=== PATIENT | male | born 1960 | race Caucasian/White ===

== ENCOUNTER 2021-03-23 17:21 | Emergency (ER) | payer BC, OTHER ==
[2021-03-23] MEDS ORDERED: Fluorescein 1 MG Ophth Strip EYERT ONE ×2 (18:16→18:46)
[2021-03-23] MEDS ORDERED: Proparacaine 0.5% Ophth Soln 15 ML Bottle EYERT PRN ×2 (18:16→18:26)
--- NOTE | 2021-03-23 18:20 | EDM.PDOC ---
ED HPI GENERAL MEDICAL PROBLEM - General Stated Complaint: SOMETHING IN EYE Time Seen by Provider: 03/23/21 18:12 Source of Information: Reports: Patient - History of Present Illness INITIAL COMMENTS - FREE TEXT/NARRATIVE: Den is a 60 y/o male who presents to the ER with complaints of something in his right eye. He was grinding metal yesterday and may have gotten metal in his eye. It bothered him all night, worse when his eyelids are closed. It is red and watery. No vision changes. - Related Data Allergies Allergy/AdvReac Type Severity Reaction Status Date / Time diclofenac sodium Allergy Hives Verified 04/18/16 19:50 [From Voltaren] hydrochlorothiazide Allergy Bradycardia Verified 04/18/16 19:50 lisinopril Allergy Bradycardia Verified 04/18/16 19:50 misoprostol [From Arthrotec] Allergy Hives Verified 04/18/16 19:50 Home Meds: Home Meds Aspirin 81 mg PO DAILY 06/02/14 [History] allopurinoL [Zyloprim] 300 mg PO DAILY 06/02/14 [History] atorvaSTATin [Lipitor] 10 mg PO BEDTIME 06/02/14 [History] Magnesium Oxide 400 mg PO BID #30 tablet 06/04/14 [Rx] amLODIPine [Norvasc] 5 mg PO Q12HR #60 tablet 06/04/14 [Rx] Losartan [Cozaar] 50 mg PO DAILY 09/14/15 [History] Hydrocodone/Acetaminophen [Hydrocodon-Acetaminophn 10-325] 1 tab PO BID 04/18/16 [History] Past Medical History - Past Health History Medical/Surgical History: Denies Medical/Surgical History HEENT History: Reports: Sinusitis Cardiovascular History: Reports: Hypertension, [place], Other (See Below) Other Cardiovascular History: Hx. of dyslipidemia Respiratory History: Reports: Asthma Gastrointestinal History: Reports: GERD Genitourinary History: Reports: Other (See Below) Other Genitourinary History: Chronic Kidney Disease, Hx. of testicular mass (Being follwed by Urology) Musculoskeletal History: Reports: Arthritis, Back Pain, Chronic, Neck Pain, Chronic, Other (See Below) Other Musculoskeletal History: Cervical Spine Degenerative Disc Disease with radiculopathy, C5-C6 anterolisthesis, neuroforaminal narrowing of cervical spine, degenerative spondylosis of multiple levels of the spine Neurological History: Reports: Headaches, Chronic Psychiatric History: Reports: Anxiety, Other (See Below) Other Psychiatric History: Hx. of THC use Endocrine/Metabolic History: Reports: Vitamin D Deficiency Other Hematologic History: Hypercalcemia Other Oncologic History: Hx. of testicular mass Review of Systems - Review of Systems Review Of Systems: See Below Constitutional: Reports: No Symptoms Eyes: Reports: Drainage, Foreign Body Sensation, Pain Ears: Reports: No Symptoms Nose: Reports: No Symptoms Mouth/Throat: Reports: No Symptoms Respiratory: Reports: No Symptoms Cardiovascular: Reports: No Symptoms GI/Abdominal: Reports: No Symptoms Genitourinary: Reports: No Symptoms Musculoskeletal: Reports: No Symptoms Skin: Reports: No Symptoms Neurological: Reports: No Symptoms Psychiatric: Reports: No Symptoms ED EXAM, GENERAL - Physical Exam Exam: See Below General Appearance: Alert, WD/WN, No Apparent Distress Eye Exam: Right Eye: Foreign Body (7 o'clock position note metal piece), Bilateral Eye: EOMI, PERRL, Other (Wood's lamp exan done and only dye uptake noted around foreign body) Ears: Hearing Grossly Normal Nose: Normal Inspection Throat/Mouth: Normal Voice Head: Atraumatic, Normocephalic Respiratory/Chest: No Respiratory Distress Cardiovascular: Regular Rate, Rhythm GI/Abdominal: Soft (Male) Exam: Deferred Rectal (Males) Exam: Deferred Neurological: Alert, Oriented, CN II-XII Intact, Normal Cognition Skin Exam: Warm, Dry, Intact, Normal Color ED TRAUMA PROCEDURES - Foreign Body Removal Indication:: Foreign Body Right Eye Consent Obtained: Patient Performing Doctor:: Kenisha Dyer Anesthesia Type: Local Findings:: Note metal shard in 7 o'clock position on the right cornea, removed with Algerbrush tip and Q Tip. Patient reported feeling better following removal. Complications:: No Comments:: Eye patched after instilling Neosporin eye oint to right lower eyelid. Course - Vital Signs Text/Narrative:: 1811 The patient was seen by the [facility]. Proparaine and Fluorescein placed in right eye. Right examined with Wood's lamp. See Procedure Note. The patient was given discharge instructions and left the ER in stable condition. - Orders/Labs/Meds Orders: Active Orders 24 hr Category Date Time Status Proparacaine [Proparacaine 0.5% Ophth Soln] Med 03/23/21 18:26 Ordered 1 ml EYERT ASDIRECTED PRN Medication Orders Proparacaine HCl (Proparacaine 0.5% Ophth Soln 15 Ml Bottle) 1 ml EYERT ASDIRECTED PRN PRN Reason: Other Meds: Medications Generic Name Dose Route Start Last Admin Trade Name Frecurt PRN Reason Stop Dose Admin Proparacaine HCl 1 ml 03/23/21 18:26 Proparacaine 0.5% Ophth Soln 15 Ml Bottle EYERT ASDIRECTED PRN Other Discontinued Medications Generic Name Dose Route Start Last Admin Trade Name Freq PRN Reason Stop Dose Admin Bacitracin/Polymyxin B Sulfate 1 pkt 03/23/21 18:50 Bacitracin/Polymyxin B Oint 0.9 Gm U/D Pkt TOP 03/23/21 18:51 ONETIME ONE Fluorescein Sodium 1 mg 03/23/21 18:16 03/23/21 18:28 Fluorescein 1 Mg Ophth Strip EYERT 03/23/21 18:17 1 mg ONETIME ONE Administration Fluorescein Sodium 1 mg 03/23/21 18:46 03/23/21 18:49 Fluorescein 1 Mg Ophth Strip EYERT 03/23/21 18:47 1 mg ONETIME ONE Administration Neomycin/Polymyxin/Bacitracin Confirm 03/23/21 19:10 Bacitracin/Neomycin/Polymyxin B Ophth Oint 3.5 Gm Tube Administered 03/23/21 19:11 Dose 3.5 gm .ROUTE .STK-MED ONE Proparacaine HCl 1 ml 03/23/21 18:16 03/23/21 18:29 Proparacaine 0.5% Ophth Soln 15 Ml Bottle EYERT 5 drop ASDIRECTED PRN Administration Other Departure - Departure Time of Disposition: 19:05 Disposition: Home, Self-Care 01 Condition: Good Clinical Impression: Foreign body in cornea, right eye, initial encounter - Discharge Information Instructions: Eye Foreign Body Referrals: Hannah De Guzman PA-C [Primary Care Provider] - Additional Instructions: -Neosporin ophthalmic ointment Apply 3x daily to your right lower eyelid and pat ch eye for 48 hours #3.5gm (ER) USe the medication that was given to you in the ER. -Keep your eye patched while it heals. -Monitor for fever or other signs of infection -Make an appt to see your [facility] on Friday for a recheck - My Orders Last 24 Hours: My Active Orders 03/23/21 18:26 Proparacaine [Proparacaine 0.5% Ophth Soln] 1 ml EYERT ASDIRECTED PRN - Assessment/Plan Last 24 Hours: My Active Orders 03/23/21 18:26 Proparacaine [Proparacaine 0.5% Ophth Soln] 1 ml EYERT ASDIRECTED PRN Assessment:: 1)Foreign Body Right Eye with Removal Plan: As above
[2021-03-23] MEDS ORDERED: Bacitracin/Polymyxin B Oint 0.9 GM U/D Pkt TOP ONE (18:50)
[2021-03-23] MEDS ORDERED: Bacitracin/Neomycin/Polymyxin B Ophth Oint 3.5 GM Tube EYERT ONE (19:00)
[2021-03-23] MEDS ORDERED: Bacitracin/Neomycin/Polymyxin B Ophth Oint 3.5 GM Tube ONE (19:10)
[2021-03-23 19:45] VITALS: BP 130/80; PULSE 56
[2021-03-24] MEDS ORDERED: Bacitracin/Neomycin/Polymyxin B Ophth Oint 3.5 GM Tube EYERT ONE (19:25)
== END 2021-03-23 19:26 | disposition home or self-care (01) ==
LOC: VM.ED 17:21
DX: T15.01XA Foreign body in cornea, right eye, initial encounter (principal); I12.9 Hypertensive chronic kidney disease with stage 1 through stage 4 chronic kidney disease, or unspecified chronic kidney disease; I25.2 Old myocardial infarction; N18.9 Chronic kidney disease, unspecified; Z79.899 Other long term (current) drug therapy; Z88.8 Allergy status to other drugs, medicaments and biological substances; Z79.82 Long term (current) use of aspirin
CPT/HCPCS: 65220; 99283; A9270

== ENCOUNTER 2021-11-03 21:16 | Emergency (ER) | payer BC ==
[2021-11-03 22:51] LABS: CHLORIDE,CL 104 mmol/L (98-107); SODIUM,NA 136 mmol/L (136-145)
[2021-11-03 22:52] LABS: ANION GAP 8.8 mmol/L (5-15)
[2021-11-03] MEDS ORDERED: Take Home: Sulfamethoxazole/Trimethoprim 800-160 MG Tab, 2 Tab Pack PO ONE (23:36)
[2021-11-04 01:16] VITALS: BP 129/78; PULSE 68
== END 2021-11-04 00:14 | disposition home or self-care (01) ==
LOC: VM.ED 21:16
DX: N39.0 Urinary tract infection, site not specified (principal); N50.9 Disorder of male genital organs, unspecified; I10 Essential (primary) hypertension; I25.2 Old myocardial infarction; K21.9 Gastro-esophageal reflux disease without esophagitis; Z88.8 Allergy status to other drugs, medicaments and biological substances; Z79.82 Long term (current) use of aspirin; Z79.899 Other long term (current) drug therapy
CPT/HCPCS: 36415; 80053; 81001; 85025; 86140; 87086; 99283; 99284; A9270-GY

== ENCOUNTER 2021-11-23 16:12 | Emergency (ER) | payer BC ==
[2021-11-23] MEDS ORDERED: Sodium Chloride 0.9% 10 ML Syringe FLUSH PRN (16:33)
[2021-11-23 17:17] LABS: CHLORIDE,CL 99 mmol/L (98-107); SODIUM,NA 136 mmol/L (136-145)
[2021-11-23 17:19] LABS: ANION GAP 15.9 mmol/L (5-15)
[2021-11-23 17:31] LABS: CORONAVIRUS COVID-19 NAA NEGATIVE (NEGATIVE)
[2021-11-23 17:34] VITALS: BP 141/87; PULSE 96
[2021-11-23] MEDS ORDERED: Take Home: Amoxicillin 875 MG Tab, 2 Tab Pack PO ONE (17:44)
[2021-11-23] MEDS ORDERED: methylPREDNISolone Sodium Succinate 125 MG/2 ML SDV IVPUSH ONE (17:54)
== END 2021-11-23 18:05 | disposition home or self-care (01) ==
LOC: VM.ED 16:12
DX: J01.90 Acute sinusitis, unspecified (principal); I12.9 Hypertensive chronic kidney disease with stage 1 through stage 4 chronic kidney disease, or unspecified chronic kidney disease; N18.9 Chronic kidney disease, unspecified; I25.2 Old myocardial infarction; K21.9 Gastro-esophageal reflux disease without esophagitis; Z88.8 Allergy status to other drugs, medicaments and biological substances; Z79.82 Long term (current) use of aspirin; Z79.899 Other long term (current) drug therapy; Z20.822 Contact with and (suspected) exposure to COVID-19
CPT/HCPCS: 0240U; 36415; 71046; 80048; 83605; 85025; 86140; 87040; 87651-QW; 96374; 99283; 99283-25; A9270-GY; J2930

== ENCOUNTER 2023-06-06 16:13 | Emergency (ER) | payer BC ==
[2023-06-06 16:42] VITALS: BP 131/85; PULSE 94
[2023-06-06 17:01] LABS: BASOPHILS PERCENT AUTO 0.1 % (0.2-1.2); HEMATOCRIT 42.6 % (40.0-52.0); HEMOGLOBIN 14.6 g/dL (14.0-18.0); IMMATURE GRAN ABSOLUTE AUTO 0.01 x10^3/uL (0.00-0.07); LYMPHOCYTES ABSOLUTE AUTO 0.9 x10^3/uL (1.0-4.8); LYMPHOCYTES PERCENT AUTO 9.2 % (25.0-50.0); MEAN CORPUSCULAR HEMOGLOBIN 31.7 pg (26.0-32.0); MEAN CORPUSCULAR HGB CONC 34.3 g/dL (32.0-36.0); MEAN CORPUSCULAR VOLUME 92.6 fL (78.0-93.0); MONOCYTES ABSOLUTE AUTO 0.8 x10^3/uL (0.0-0.8); MONOCYTES PERCENT AUTO 8.2 % (2.0-11.0); NEUTROPHILS ABSOLUTE AUTO 8.1 x10^3/uL (1.8-7.7); NEUTROPHILS PERCENT AUTO 82.4 % (50.0-80.0); PLATELET COUNT,PLT 226 x10^3/uL (130-400); WHITE BLOOD CELL COUNT,WBC 9.8 x10^3/uL (4.0-10.0)
[2023-06-06 17:25] LABS: A/G RATIO 1.08; ALANINE AMINOTRANSFERASE,ALT 27 U/L (16-63); ALBUMIN 3.9 g/dL (3.4-5.0); ALKALINE PHOSPHATASE 87 U/L (46-116); ASPARTATE AMNIOTRANSFERASE,AST 25 U/L (15-37); BILIRUBIN TOTAL 0.4 mg/dL (0.2-1.0); BLOOD UREA NITROGEN,BUN 15 mg/dL (7-18); CALCIUM 9.4 mg/dL (8.5-10.1); CARBON DIOXIDE,CO2 25 mmol/L (21-32); CHLORIDE,CL 98 mmol/L (98-107); CREATININE 0.9 mg/dL (0.70-1.30); GLUCOSE RANDOM 115 mg/dL (70-99); POTASSIUM,K 3.8 mmol/L (3.5-5.1); PROTEIN TOTAL,TP 7.5 g/dL (6.4-8.2); SODIUM,NA 134 mmol/L (136-145)
[2023-06-06 17:28] LABS: ANION GAP 14.8 mmol/L (5-15); ESTIMATED GFR 97 mL/min (>=60)
[2023-06-06 17:46] LABS: CORONAVIRUS COVID-19 NAA POSITIVE (NEGATIVE); INFLUENZA A NAA NEGATIVE (NEGATIVE); INFLUENZA B NAA NEGATIVE (NEGATIVE); RESPIRATORY SYNCYTIAL VIR NAA NEGATIVE (NEGATIVE)
[2023-06-06] MEDS ORDERED: Ketorolac 30 MG/ML SDV IM ONE (17:53)
[2023-06-06] MEDS ORDERED: Nirmatrelvir/Ritonavir 300 MG/100 MG Dose Pack PO SCH (18:00)
== END 2023-06-06 18:08 | disposition home or self-care (01) ==
LOC: VM.ED 16:13
DX: U07.1 COVID-19 (principal); I10 Essential (primary) hypertension; K21.9 Gastro-esophageal reflux disease without esophagitis; I25.2 Old myocardial infarction; Z88.2 Allergy status to sulfonamides; Z88.6 Allergy status to analgesic agent; Z79.899 Other long term (current) drug therapy; Z79.82 Long term (current) use of aspirin
CPT/HCPCS: 0241U; 36415; 71046; 80053; 85025; 87651-QW; 96372; 99283; 99284; A9270-GY; J1885

== ENCOUNTER 2024-09-23 18:26 | Emergency (ER) | payer BC ==
[2024-09-23] MEDS: Pantoprazole 40 MG Vial IVPUSH ONE (19:12)
[2024-09-23] MEDS: Iopamidol 755 Mg/ML 100 ML Bottle IVPUSH ONE (19:25)
[2024-09-23] MEDS: Alum Hydrox/Mag Hydrox/Simeth 30 ML, Lidocaine 2% 15 ML PO ONE (20:39)
[2024-09-23 20:40] VITALS: BP 135/96
[2024-09-24 00:17] VITALS: PULSE 59
== END 2024-09-23 21:01 | disposition home or self-care (01) ==
LOC: VM.ED 18:26
DX: R07.89 Other chest pain (principal); R06.02 Shortness of breath; R12 Heartburn; I12.9 Hypertensive chronic kidney disease with stage 1 through stage 4 chronic kidney disease, or unspecified chronic kidney disease; N18.9 Chronic kidney disease, unspecified; K21.9 Gastro-esophageal reflux disease without esophagitis; Z86.16 Personal history of COVID-19; Z79.899 Other long term (current) drug therapy; Z88.8 Allergy status to other drugs, medicaments and biological substances; Z88.5 Allergy status to narcotic agent
CPT/HCPCS: 36415; 71275; 84484; 93005; 96374; 99285-25; A9270-GY; J2470; Q9967

== ENCOUNTER 2025-03-03 08:58 | Emergency (ER) | payer BC ==
[2025-03-03] MEDS ORDERED: Sodium Chloride 0.9% 10 ML Syringe FLUSH PRN (09:03)
[2025-03-03 09:15] LABS: BASOPHILS PERCENT AUTO 0.1 % (0.2-1.2); EOSINOPHILS PERCENT AUTO 0.3 % (0.0-4.0); HEMOGLOBIN 15.9 g/dL (14.0-18.0); IMMATURE GRAN ABSOLUTE AUTO 0.02 x10^3/uL (0.00-0.07); LYMPHOCYTES ABSOLUTE AUTO 1.9 x10^3/uL (1.0-4.8); LYMPHOCYTES PERCENT AUTO 16.6 % (25.0-50.0); MEAN CORPUSCULAR HEMOGLOBIN 31.5 pg (26.0-32.0); MEAN CORPUSCULAR HGB CONC 33.8 g/dL (32.0-36.0); MEAN CORPUSCULAR VOLUME 93.3 fL (78.0-93.0); MONOCYTES ABSOLUTE AUTO 0.4 x10^3/uL (0.0-0.8); MONOCYTES PERCENT AUTO 3.8 % (2.0-11.0); NEUTROPHILS ABSOLUTE AUTO 9.1 x10^3/uL (1.8-7.7); PLATELET COUNT,PLT 322 x10^3/uL (130-400); RED BLOOD CELL COUNT 5.04 x10^6/uL (4.5-6.0); WHITE BLOOD CELL COUNT,WBC 11.5 x10^3/uL (4.0-10.0)
[2025-03-03] MEDS: Aspirin 81 MG Tab.Chew PO ONE (09:20)
[2025-03-03] MEDS: Ondansetron 4 MG/2 ML SDV IVPUSH ONE (09:20)
[2025-03-03] MEDS: Nitroglycerin 0.4 MG Tab.SL SL ONE (09:21)
[2025-03-03 09:27] LABS: PROTHROMBIN TIME 10.9 SEC (9.6-12.0)
[2025-03-03 09:41] LABS: A/G RATIO 1.17; ALANINE AMINOTRANSFERASE,ALT 32 U/L (16-63); ALBUMIN 4.2 g/dL (3.4-5.0); ALKALINE PHOSPHATASE 96 U/L (46-116); ASPARTATE AMNIOTRANSFERASE,AST 26 U/L (15-37); BILIRUBIN TOTAL 0.4 mg/dL (0.2-1.0); BLOOD UREA NITROGEN,BUN 14 mg/dL (7-18); CALCIUM 10.9 mg/dL (8.5-10.1); CARBON DIOXIDE,CO2 26 mmol/L (21-32); CHLORIDE,CL 105 mmol/L (98-107); CREATININE 1.1 mg/dL (0.70-1.30); GLUCOSE RANDOM 129 mg/dL (70-99); POTASSIUM,K 4.4 mmol/L (3.5-5.1); PRO B-TYPE NATRIUR PEPT,BNPPRO 32 pg/mL (<=125); PROTEIN TOTAL,TP 7.8 g/dL (6.4-8.2); SODIUM,NA 141 mmol/L (136-145)
[2025-03-03 09:42] LABS: ANION GAP 14.4 mmol/L (5-15); ESTIMATED GFR 75 mL/min (>=60)
[2025-03-03] MEDS: Alum Hydrox/Mag Hydrox/Simeth 30 ML, Lidocaine 2% 15 ML, Promethazine 12.5 MG PO ONE (09:42)
[2025-03-03] MEDS: Morphine 2 MG/ML SYRINGE IVPUSH ONE (10:04)
[2025-03-03 21:55] VITALS: BP 162/98; PULSE 48
== END 2025-03-03 11:55 | disposition home or self-care (01) ==
LOC: VM.ED 08:58
DX: K29.00 Acute gastritis without bleeding (principal); I12.9 Hypertensive chronic kidney disease with stage 1 through stage 4 chronic kidney disease, or unspecified chronic kidney disease; I25.2 Old myocardial infarction; M19.90 Unspecified osteoarthritis, unspecified site; N18.9 Chronic kidney disease, unspecified; Z88.8 Allergy status to other drugs, medicaments and biological substances; Z79.899 Other long term (current) drug therapy; Z86.16 Personal history of COVID-19
CPT/HCPCS: 36415; 71045; 74176; 80053; 83690; 83735; 83880; 84484; 85025; 85610; 93005; 96374; 96375; 99285; A9270; J2270; J2405